=== PATIENT | female | born 1975 | race Caucasian/White ===

== ENCOUNTER 2022-09-08 15:09 | Emergency (ER) | payer OTHER, MEDICAID ==
[~2022-09-08] VITALS: Ht 152.4 cm; Wt 67.1 kg
[2022-09-08 15:26] VITALS: BP 135/73
--- NOTE | 2022-09-08 16:25 | NUR ---
MARY ANNE SOTO AT BEDSIDE FOR MSE.
[2022-09-08] MEDS ORDERED: KETOROLAC 30 MG/ML VIAL IM ONE (16:30)
[2022-09-08] MEDS ORDERED: LID5T TP (16:44)
[2022-09-08] MEDS ORDERED: IBUP-2213 PO (16:44)
[2022-09-08] MEDS ORDERED: CYCL-711 PO (16:44)
[2022-09-08] MEDS ORDERED: ACET-10509 PO (16:44)
[2022-09-08 18:25] VITALS: BP 121/76
--- NOTE | 2022-09-08 18:25 | NUR ---
Patient discharged with v/s stable. Written and verbal after care instructions given and explained. Patient alert, oriented and verbalized understanding of instructions. Ambulatory with steady gait. All questions addressed prior to discharge. ID band removed. Patient advised to follow up with PMD. Rx of IBUPROFEN, TYLENOL, FLEXERIL, LIDOCAINE PATCH given. Patient educated on indication of medication including possible reaction and side effects. Opportunity to ask questions provided and answered.
== END 2022-09-08 18:25 | disposition home or self-care (01) ==
LOC: MED 15:09
DX: S39.012A Strain of muscle, fascia and tendon of lower back, initial encounter (principal); S16.1XXA Strain of muscle, fascia and tendon at neck level, initial encounter; Z79.899 Other long term (current) drug therapy; Z79.1 Long term (current) use of non-steroidal anti-inflammatories (NSAID); Z88.0 Allergy status to penicillin; V89.2XXA Person injured in unspecified motor-vehicle accident, traffic, initial encounter; Y93.89 Activity, other specified; Y92.410 Unspecified street and highway as the place of occurrence of the external cause; Y99.8 Other external cause status
CPT/HCPCS: 72040; 72110; 96372; 99284; J1885

== ENCOUNTER 2023-06-05 00:40 | Emergency (ER) | payer OTHER ==
[~2023-06-05] VITALS: Ht 160 cm; Wt 66.7 kg
[~2023-06-05 00:40] MED LIST: ACET-10509 PO; CYCL-711 PO; IBUP-2213 PO; LID5T TP
[2023-06-05 00:51] VITALS: PULSE 68; RESP 20; TEMP 97.4; O2SAT 100
[2023-06-05 01:46] LABS: BASOPHILS % (AUTO) 0.3 % (0.0-2.0); EOSINOPHILS # (AUTO) 0.2 K/uL (0-0.4); EOSINOPHILS % (AUTO) 1.3 % (0.0-4.0); HEMATOCRIT 38.9 % (36-48); HEMOGLOBIN 13.1 g/dL (12.0-16.0); LYMPHOCYTES # (AUTO) 2.5 K/uL (2.5-16.5); MEAN CORPUSCULAR HEMOGLOBIN 32 pg (27-31); MEAN CORPUSCULAR HGB CONC 34 g/dL (33-37); MEAN CORPUSCULAR VOLUME 95.1 fL (80-94); MONOCYTES # (AUTO) 0.7 K/uL (0.8-1.0); NEUTROPHILS % (AUTO) 70.4 % (42.2-75.2); PLATELET COUNT (AUTO) 189 K/uL (140-450); RED BLOOD CELL COUNT(AUTO) 4.09 MIL/uL (4.20-5.40); RED CELL DISTRIBUTION WIDTH 13.7 % (11.6-13.7); WHITE BLOOD COUNT (AUTO) 11.4 K/uL (4.8-10.8)
[2023-06-05 01:51] LABS: APPEARANCE,URINE CLEAR (CLEAR); BILIRUBIN,URINE NEGATIVE (NEGATIVE); BLOOD, URINE TRACE-I (NEGATIVE); COLOR,URINE YELLOW (YELLOW); LEUKOCYTE ESTERASE ,URINE TRACE (NEGATIVE); NITRITE, URINE POSITIVE (NEGATIVE); PROTEIN,URINE NEGATIVE (NEGATIVE); UGLUCOSE NEGATIVE (NEGATIVE); UROBILINOGEN,URINE 0.2 EU/dL (0.2 - 1)
[2023-06-05 01:57] LABS: BACTERIA,URINE >30 (MANY) /HPF (None Seen); MUCUS,URINE 1+ /LPF (None Seen); SQUAMOUS EPITHELIAL CELL,UR 4-10 (MOD) /LPF (0-3 (FEW))
[2023-06-05 01:59] LABS: ANION GAP 11.6 (8-16); CALCIUM 8.4 mg/dL (8.5-10.1); CARBON DIOXIDE 25.2 mmol/L (21-32); CREATININE 0.7 mg/dL (0.6-1.3); POTASSIUM 3.8 mmol/L (3.5-5.1)
[2023-06-05] MEDS: KETOROLAC 30 MG/ML VIAL IM ONE (02:01)
[2023-06-05 02:05] LABS: ALBUMIN 3.5 g/dL (3.4-5.0); TOTAL BILIRUBIN 0.2 mg/dL (0.0-1.0); TOTAL PROTEIN, SERUM 7.7 g/dL (6.4-8.2)
[2023-06-05] MEDS ORDERED: DICYCLOMINE HCL LIQUID 10 MG/5 ML UDC ONE (02:27)
[2023-06-05] MEDS ORDERED: ALUMINUM HYD/MAG/SIMETHICONE 30 ML UDC ONE (02:27)
[2023-06-05] MEDS: DICYCLOMINE HCL LIQUID 20 MG, ALUMINUM HYD/MAG/SIMETHICONE 30 ML, LIDOCAINE VISCOUS 2% ... PO ONE (02:30)
[2023-06-05] MEDS ORDERED: FAMO-90 PO (03:39)
[2023-06-05] MEDS ORDERED: ALUM355S59 PO (03:39)
[2023-06-05] MEDS ORDERED: PYR100 PO (03:39)
[2023-06-05] MEDS ORDERED: CALC500C17 PO (03:39)
[2023-06-05] MEDS ORDERED: NITR100C7 PO (03:39)
[2023-06-05 03:56] VITALS: BP 124/86; PULSE 68; RESP 20; TEMP 97.4; O2SAT 100
== END 2023-06-05 03:56 | disposition home or self-care (01) ==
LOC: MED 00:40
DX: K29.70 Gastritis, unspecified, without bleeding (principal); N39.0 Urinary tract infection, site not specified; Z79.899 Other long term (current) drug therapy; Z88.0 Allergy status to penicillin
CPT/HCPCS: 36415; 80053; 81001; 81025; 83690; 85025; 87086; 96372; 99283; J1885